=== PATIENT | female | born 1995 | race Caucasian/White ===

== ENCOUNTER 2021-11-23 17:24 | Emergency (ER) | payer MEDICARE, MEDICAID ==
[~2021-11-23] VITALS: Ht 147.3 cm; Wt 54.1 kg
[2021-11-23 17:55] VITALS: BP 123/83
[2021-11-23] MEDS ORDERED: ondansetron 4mg rapidly disintigrating tab PO ONE (18:05)
[2021-11-23 18:43] LABS: BASOPHILS % (AUTO) 0.2 % (0-1); EOSINOPHILS % (AUTO) 0 % (0-6); HEMATOCRIT 44.5 % (35.0-45.0); HEMOGLOBIN 14.8 g/dl (12.0-16.0); LYMPHOCYTES # (AUTO) 0.8 X10'3 (1.1-4.8); LYMPHOCYTES % (AUTO) 5.9 % (21-51); MEAN CORPUSCULAR HEMOGLOBIN 29.1 PG (27.0-31.0); MEAN CORPUSCULAR HGB CONC 33.1 g/dL (33.0-36.5); MEAN CORPUSCULAR VOLUME 87.8 FL (78-98); MEAN PLATELET VOLUME 8.1 FL (7.4-10.4); MONOCYTES # (AUTO) 0.4 X10'3 (0-0.9); NEUTROPHILS # (AUTO) 11.8 X10'3 (1.8-7.7); NEUTROPHILS % (AUTO) 90.9 % (42-75); PLATELET COUNT 349 X10'3 (140-440); RED BLOOD COUNT 5.07 X10'6 (4.20-5.60); RED CELL DISTRIBUTION WIDTH 12.7 % (11.5-14.5)
[2021-11-23 18:56] LABS: ALANINE AMINOTRANSFERASE 25 U/L (12-78); ALBUMIN 3.6 G/DL (3.4-5.0); ALBUMIN/GLOBULIN RATIO 0.8 (1.1-1.5); ALKALINE PHOSPHATASE 96 IU/L (46-116); ANION GAP 10 (8-16); ASPARTATE AMINO TRANSFERASE 22 U/L (10-37); BILIRUBIN,TOTAL 0.4 MG/DL (0.1-1.0); BLOOD UREA NITROGEN 15 MG/DL (7-18); BUN/CREATININE RATIO 13.4 (6.6-38.0); CALCIUM 8.8 MG/DL (8.5-10.1); CHLORIDE 104 MMOL/L (99-107); CREATININE 1.12 MG/DL (0.40-0.90); GLUCOSE 127 MG/DL (70-104); SODIUM 138 MMOL/L (135-145); TOTAL CARBON DIOXIDE 23.9 MMOL/L (24-32); eGFR 58 ML/MIN
[2021-11-23 19:03] LABS: URINE HCG NEGATIVE (NEG)
[2021-11-23 19:12] LABS: CLARITY,URINE SLIGHTLY CLOUDY (Clear); COLOR,URINE YELLOW (Yellow); GLUCOSE, URINE NEGATIVE (Neg); KETONES,URINE 15 mg/dl (Neg); LEUKOCYTE ESTERASE ,URINE NEGATIVE (Neg); NITRITES, URINE NEGATIVE (Neg); OCCULT BLOOD,URINE SMALL (Neg); PROTEIN,URINE TRACE mg/dl (Neg); UROBILINOGEN,URINE 0.2 E.U/dL (0.2-1.0)
[2021-11-23 19:14] LABS: UA COLLECTION TYPE CLN CATCH MIDSTREAM
[2021-11-23] MEDS ORDERED: ONDA4TAB12 PO (19:18)
[2021-11-23 19:26] LABS: BACTERIA,URINE FEW /HPF (Neg); MUCUS STRANDS FEW /LPF (Neg); SQUAMOUS EPITHELIAL CELL,UR MANY /LPF (FEW); TRANSITIONAL EPI CELLS,URINE FEW /HPF; WBC,URINE 0-4 /HPF (0-4)
[2021-11-23 19:27] LABS: HYALINE CASTS 0-3 /LPF (NEGATIVE)
== END 2021-11-23 19:47 | disposition home or self-care (01) ==
LOC: ER 17:25
DX: A08.4 Viral intestinal infection, unspecified (principal); R11.2 Nausea with vomiting, unspecified; R30.9 Painful micturition, unspecified; R10.12 Left upper quadrant pain; Z79.899 Other long term (current) drug therapy
CPT/HCPCS: 36415; 80053; 81001; 81025; 85025; 99284

== ENCOUNTER 2022-01-19 10:20 | Emergency (ER) | payer MEDICAID, MEDICARE, OTHER ==
[~2022-01-19] VITALS: Ht 147.3 cm; Wt 54.0 kg
[~2022-01-19 10:20] MED LIST: ONDA4TAB12 PO
[2022-01-19 10:23] VITALS: BP 137/92
[2022-01-19] MEDS ORDERED: AMOX-419 PO (10:58)
== END 2022-01-19 11:13 | disposition home or self-care (01) ==
LOC: ER 10:21
DX: S61.552A Open bite of left wrist, initial encounter (principal); W54.0XXA Bitten by dog, initial encounter; Y93.89 Activity, other specified; Y92.89 Other specified places as the place of occurrence of the external cause; Y99.8 Other external cause status
CPT/HCPCS: 99283

== ENCOUNTER 2024-09-20 17:16 | Emergency (ER) | payer MEDICARE, MEDICAID ==
[~2024-09-20] VITALS: Ht 147.3 cm; Wt 57.7 kg
[~2024-09-20 17:16] MED LIST changes: +ONDA-243 PO; -ONDA4TAB12 PO
[2024-09-20] MEDS: acetaminophen 325mg tablet PO ONE (18:46)
[2024-09-20] MEDS ORDERED: ALBU8HFA INH (18:56)
[2024-09-20] MEDS ORDERED: CODE10LI2 PO (18:59)
[2024-09-20 19:15] VITALS: BP 124/89; PULSE 99; RESP 16; TEMP 98.6; O2SAT 99
== END 2024-09-20 19:17 | disposition home or self-care (01) ==
LOC: ER 17:17
DX: J10.1 Influenza due to other identified influenza virus with other respiratory manifestations (principal); Z79.899 Other long term (current) drug therapy; Z20.822 Contact with and (suspected) exposure to COVID-19
CPT/HCPCS: 71045; 87502; 87503; 99284